=== PATIENT | female | born 1990 | race Two or more races ===

== ENCOUNTER 2017-12-22 17:58 | Inpatient (IN) | payer BC, MEDICAID ==
[2017-12-21 23:05] VITALS: BP 138/84
[~2017-12-22] VITALS: Ht 175.3 cm; Wt 52.2 kg
[2017-12-22] MEDS ORDERED: INSULIN (18:01)
[2017-12-22] MEDS ORDERED: SODIUM CHLORIDE 0.9% 1,000 ML IV ONE ×2 (18:49→20:03)
[2017-12-22 19:23] LABS: HEMATOCRIT. 44.7 % (36.0-48.0); HEMOGLOBIN. 14.1 g/dL (12.0-16.0); MEAN CORPUSCULAR HEMOGLOBIN 30.7 pg (28.0-32.0); MEAN CORPUSCULAR VOLUME 97.4 fL (81.0-99.0); MEAN PLATELET VOLUME 9.9 fl (7.4-10.4); PLATELET 368 x1000/uL (130-400); RED BLOOD CELL COUNT 4.59 mill/uL (4.2-5.4); RED CELL DISTRIBUTION WIDTH 13.1 % (11.6-14.6)
[2017-12-22 19:26] LABS: CHLORIDE 108 mEq/L (98-107)
[2017-12-22 19:30] LABS: AMYLASE 116 IU/L (25-115)
[2017-12-22 19:33] LABS: BETA HYDROXYBUTYRATE 8.7 mMol/L (0.0-0.3)
[2017-12-22 19:48] LABS: CLARITY URINE CLEAR (CLEAR); COLOR URINE YELLOW (YELLOW); KETONES URINE 4+ (NEGATIVE); LEUKOCYTE ESTERASE URINE NEGATIVE (NEGATIVE); NITRITE URINE NEGATIVE (NEGATIVE); OCCULT BLOOD URINE TRACE (NEGATIVE); PROTEIN URINE 1+ (NEGATIVE); SPECIFIC GRAVITY URINE 1.018 (1.005-1.030); UROBILINOGEN URINE 0.2 E.U./dL (0.2-1.0)
[2017-12-22 19:51] LABS: HCG SCREEN NEGATIVE
[2017-12-22 19:53] LABS: PLATELET ESTIMATE NORMAL
[2017-12-22 20:03] LABS: BG BASE EXCESS -29.6 mmol/L (-2.0-2.0); BG FRACTION INSPIRED OXYGEN 21; BG HCO3 ACT 2.5 mmol/L (22.0-26.0); BG PCO2 13.9 mmHg (35.0-45.0); BG PO2 139.9 mmHg (75.0-100.0); BG SAMPLE SITE RIGHT RADIAL; BG VENT MODE ROOM AIR
[2017-12-22] MEDS ORDERED: INSULIN REGULAR (DRIP) 100 UNITS in SODIUM CHLORIDE 0.9% 99 ML IV ONE (20:03)
[2017-12-22] MEDS ORDERED: SODIUM CHLORIDE 0.9% 1,000 ML IV STA (20:03)
[2017-12-22] MEDS ORDERED: PIPERACILLIN/TAZ 3.375G PREMIX 50 ML IV ONE (21:00)
[2017-12-22] MEDS ORDERED: SODIUM BICARBONATE 8.4% 1 MEQ/ML 50ML SYR IV ONE (21:00)
[2017-12-22 23:05] VITALS: BP 133/84
[2017-12-22] MEDS ORDERED: PIPERACILLIN/TAZ 3.375G PREMIX 50 ML IV SCH (23:45)
[2017-12-22] MEDS ORDERED: CLONIDINE 0.1MG TABLET PO PRN (23:45)
[2017-12-22] MEDS ORDERED: LORAZEPAM 2MG/ML CPJ IV PRN (23:45)
[2017-12-22] MEDS ORDERED: ONDANSETRON HCL 4MG/2ML VIAL IV PRN (23:45)
[2017-12-22] MEDS ORDERED: INSULIN REGULAR (DRIP) 100 UNITS in SODIUM CHLORIDE 0.9% 100 ML IV SCH (23:45)
[2017-12-22] MEDS ORDERED: IPRATROPIUM/ALBUTEROL 0.5-3(2.5)MG/3ML NEB INH PRN (23:45)
[2017-12-22 23:46] LABS: CHLORIDE 115 mEq/L (98-107)
[2017-12-22 23:52] LABS: PHOSPHORUS 3.5 mg/dL (2.5-4.9)
[2017-12-23] VITALS (24 sets, daily range): BP systolic 106–151; BP diastolic 66–90
[2017-12-23] MEDS ORDERED: INSULIN REGULAR (DRIP) 100 UNITS in SODIUM CHLORIDE 0.9% 100 ML IV SCH ×2 (00:35→19:56)
[2017-12-23] MEDS ORDERED: DEXTROSE 50% WATER 50ML SYRINGE IV PRN ×5 (00:45→20:00)
[2017-12-23] MEDS ORDERED: SODIUM CHL 0.9% + KCL 20MEQ/L 1,000 ML IV PRN (01:00)
[2017-12-23] MEDS ORDERED: DEXT 5%/0.9% NACL KCL 20MEQ/L 1,000 ML IV PRN ×2 (01:00→15:15)
[2017-12-23] MEDS: SODIUM CHLORIDE 0.9% 1,000 ML IV SCH ×2 (01:17→07:10)
[2017-12-23] MEDS: BLOOD SUGAR DIAGNOSTIC STRIP TEST SCH ×20 (01:22→23:00)
[2017-12-23] MEDS: DEXT 5%/0.9% NACL 1,000 ML IV PRN ×2 (02:00→07:14)
[2017-12-23 04:23] LABS: HEMATOCRIT. 42.6 % (36.0-48.0); HEMOGLOBIN. 13.8 g/dL (12.0-16.0); MEAN CORPUSCULAR HEMOGLOBIN 30.3 pg (28.0-32.0); MEAN CORPUSCULAR VOLUME 93.4 fL (81.0-99.0); MEAN PLATELET VOLUME 9.2 fl (7.4-10.4); PLATELET 291 x1000/uL (130-400); RED BLOOD CELL COUNT 4.56 mill/uL (4.2-5.4); RED CELL DISTRIBUTION WIDTH 12.7 % (11.6-14.6)
[2017-12-23 04:30] LABS: CHLORIDE 119 mEq/L (98-107)
[2017-12-23 04:37] LABS: PHOSPHORUS 1.9 mg/dL (2.5-4.9)
[2017-12-23 04:38] LABS: HDL CHOLESTEROL 73 mg/dL (40-59); LDL CHOLESTEROL 73 mg/dL (5-100)
[2017-12-23 04:39] LABS: CREATINE KINASE 84 IU/L (26-192)
[2017-12-23 04:40] LABS: CREATINE KINASE MB FRACTION 2.2 ng/mL (0.5-3.6)
[2017-12-23] MEDS ORDERED: CYCL10TA7 PO (05:00)
[2017-12-23] MEDS ORDERED: PANT40SU PO (05:02)
[2017-12-23] MEDS ORDERED: ACET-2708 PO (05:02)
[2017-12-23 06:45] LABS: PLATELET ESTIMATE NORMAL
[2017-12-23] MEDS: PIPERACILLIN/TAZ 3.375G PREMIX 50 ML IV SCH ×3 (07:13→21:01)
[2017-12-23 08:55] LABS: CHLORIDE 120 mEq/L (98-107)
[2017-12-23] MEDS: ENOXAPARIN 40MG/0.4ML SYR SUBCUT SCH (09:30)
[2017-12-23] MEDS ORDERED: VANCOMYCIN 1 G PREMIX 200 ML IV NR (12:00)
[2017-12-23 12:36] LABS: CHLORIDE 120 mEq/L (98-107)
[2017-12-23 12:47] LABS: T4 FREE 1.29 ng/dL (0.76-1.46)
[2017-12-23] MEDS ORDERED: POTASSIUM CHLORIDE 20MEQ/PACKET PO NR (17:00)
[2017-12-23 17:42] LABS: CREATINE KINASE 61 IU/L (26-192)
[2017-12-23] MEDS ORDERED: BLOOD SUGAR DIAGNOSTIC STRIP TEST SCH (17:50)
[2017-12-23] MEDS ORDERED: INSULIN LISPRO 100 UNITS/ML SUBCUT SCH (18:20)
[2017-12-23] MEDS: METOCLOPRAMIDE HCL 10MG/2ML VIAL IV SCH (18:28)
[2017-12-23] MEDS: VANCOMYCIN 750 MG PREMIX 150 ML IV SCH (20:24)
[2017-12-23] MEDS: DEXT 5%/0.45% NACL KCL 30MEQ/L 1,000 ML IV SCH (21:01)
[2017-12-23] MEDS: INSULIN REGULAR (DRIP) 100 UNITS in SODIUM CHLORIDE 0.9% 99 ML IV SCH (21:05)
[2017-12-24] VITALS (23 sets, daily range): BP systolic 94–154; BP diastolic 55–98
[2017-12-24] MEDS: METOCLOPRAMIDE HCL 10MG/2ML VIAL IV SCH ×5 (00:06→18:59)
[2017-12-24] MEDS: BLOOD SUGAR DIAGNOSTIC STRIP TEST SCH ×21 (00:07→22:06)
[2017-12-24] MEDS: VANCOMYCIN 750 MG PREMIX 150 ML IV SCH (04:08)
[2017-12-24] MEDS: DEXT 5%/0.45% NACL KCL 30MEQ/L 1,000 ML IV SCH ×3 (04:08→21:39)
[2017-12-24] MEDS: PIPERACILLIN/TAZ 3.375G PREMIX 50 ML IV SCH ×3 (06:03→22:06)
[2017-12-24 06:06] LABS: HEMATOCRIT. 38.6 % (36.0-48.0); MEAN CORPUSCULAR HEMOGLOBIN 30.6 pg (28.0-32.0); MEAN CORPUSCULAR VOLUME 91.2 fL (81.0-99.0); MEAN PLATELET VOLUME 8.8 fl (7.4-10.4); PLATELET 251 x1000/uL (130-400); RED BLOOD CELL COUNT 4.24 mill/uL (4.2-5.4)
[2017-12-24 06:27] LABS: CHLORIDE 116 mEq/L (98-107)
[2017-12-24 06:34] LABS: PHOSPHORUS 1.3 mg/dL (2.5-4.9)
[2017-12-24] MEDS ORDERED: SODIUM PHOS,M-BASIC-D-BASIC 20 MM in DEXT 5% WATER 243.3333 ML IV SCH (08:00)
[2017-12-24] MEDS: ENOXAPARIN 40MG/0.4ML SYR SUBCUT SCH (09:12)
[2017-12-24] MEDS ORDERED: MAGNESIUM 1 G PREMIX 100 ML IV NR (10:00)
[2017-12-24 10:02] LABS: PLATELET ESTIMATE NORMAL
[2017-12-24] MEDS: VANCOMYCIN 1,750 MG in DEXT 5% WATER 500 ML IV SCH ×2 (14:09→21:39)
[2017-12-24] MEDS: INSULIN REGULAR (DRIP) 100 UNITS in SODIUM CHLORIDE 0.9% 99 ML IV SCH (14:18)
[2017-12-24 17:28] LABS: CHLORIDE 114 mEq/L (98-107)
[2017-12-24] MEDS ORDERED: PROCHLORPERAZINE MALEATE 25MG SUPP PR PRN (20:00)
[2017-12-24] MEDS ORDERED: KCL 20MEQ/100ML PREMIX 100 ML IV SCH (22:00)
[2017-12-24] MEDS: PROCHLORPERAZINE 10MG/2ML VIAL IM PRN (22:06)
[2017-12-25] VITALS (23 sets, daily range): BP systolic 128–155; BP diastolic 71–108
[2017-12-25] MEDS: BLOOD SUGAR DIAGNOSTIC STRIP TEST SCH ×11 (00:19→21:21)
[2017-12-25] MEDS: METOCLOPRAMIDE HCL 10MG/2ML VIAL IV SCH ×5 (00:20→23:25)
[2017-12-25] MEDS: VANCOMYCIN 1,750 MG in DEXT 5% WATER 500 ML IV SCH ×2 (00:20→06:47)
[2017-12-25 06:11] LABS: BASOPHILS % 0.6 % (0.0-2.0); EOSINOPHILS % 0.2 % (0.0-5.0); HEMATOCRIT. 35.3 % (36.0-48.0); LYMPHOCYTES % 17.3 % (20.0-50.0); MEAN CORPUSCULAR HEMOGLOBIN 30.8 pg (28.0-32.0); MEAN CORPUSCULAR VOLUME 90.3 fL (81.0-99.0); MEAN PLATELET VOLUME 8.8 fl (7.4-10.4); MONOCYTES % 13.7 % (2.0-8.0); NEUTROPHILS % 68.2 % (40.0-76.0); PLATELET 242 x1000/uL (130-400); RED BLOOD CELL COUNT 3.91 mill/uL (4.2-5.4); RED CELL DISTRIBUTION WIDTH 12.8 % (11.6-14.6)
[2017-12-25 06:19] LABS: CHLORIDE 109 mEq/L (98-107)
[2017-12-25] MEDS: PIPERACILLIN/TAZ 3.375G PREMIX 50 ML IV SCH ×3 (06:23→21:21)
[2017-12-25] MEDS: DEXT 5%/0.45% NACL KCL 30MEQ/L 1,000 ML IV SCH ×2 (06:23→14:45)
[2017-12-25 06:26] LABS: PHOSPHORUS 1.6 mg/dL (2.5-4.9)
[2017-12-25 06:32] LABS: BETA HYDROXYBUTYRATE 0.1 mMol/L (0.0-0.3)
[2017-12-25] MEDS ORDERED: KCL 20MEQ/100ML PREMIX 100 ML IV NR (07:00)
[2017-12-25] MEDS: POTASSIUM PHOS,M-BASIC-D-BASIC 20 MMOL in DEXT 5% WATER 243.3333 ML IV NR ×2 (08:50→10:23)
[2017-12-25 09:27] LABS: CHLORIDE 105 mEq/L (98-107)
[2017-12-25] MEDS ORDERED: LIDOCAINE HCL 1% 20ML VIAL (Pyxis) INJ ONE (10:15)
[2017-12-25] MEDS: INSULIN REGULAR (DRIP) 100 UNITS in SODIUM CHLORIDE 0.9% 99 ML IV SCH (10:19)
[2017-12-25] MEDS: ENOXAPARIN 40MG/0.4ML SYR SUBCUT SCH (10:24)
[2017-12-25] MEDS: PROCHLORPERAZINE 10MG/2ML VIAL IM PRN (12:37)
[2017-12-25] MEDS: KCL 10MEQ/50ML PREMIX 50 ML IV SCH ×3 (14:44→16:58)
[2017-12-25] MEDS ORDERED: DEXTROSE 50% WATER 50ML SYRINGE IV PRN (16:00)
[2017-12-25] MEDS ORDERED: SODIUM CHLORIDE 0.45% IV SCH (17:00)
[2017-12-25] MEDS ORDERED: POTASSIUM ACETATE IV SCH (17:00)
[2017-12-25] MEDS ORDERED: INSULIN GLARGINE UD 100 UNITS/ML SYR SUBCUT NR (17:00)
[2017-12-25] MEDS: INSULIN LISPRO 100 UNITS/ML SUBCUT SCH ×4 (17:48→21:52)
[2017-12-25] MEDS: POTASSIUM ACETATE IV SCH (18:51)
[2017-12-25] MEDS: SODIUM CHLORIDE 0.45% IV SCH (18:51)
[2017-12-26] VITALS: BP 121/73
[2017-12-26] MEDS: PROCHLORPERAZINE 10MG/2ML VIAL IM PRN (04:04)
[2017-12-26 04:09] VITALS: BP 139/89
[2017-12-26 05:20] LABS: HEMATOCRIT. 33.4 % (36.0-48.0); HEMOGLOBIN. 11.5 g/dL (12.0-16.0); MEAN CORPUSCULAR VOLUME 90.3 fL (81.0-99.0); PLATELET 213 x1000/uL (130-400); RED CELL DISTRIBUTION WIDTH 12.5 % (11.6-14.6)
[2017-12-26 05:36] LABS: PHOSPHORUS 3.3 mg/dL (2.5-4.9)
[2017-12-26] MEDS: PIPERACILLIN/TAZ 3.375G PREMIX 50 ML IV SCH (06:04)
[2017-12-26] MEDS: METOCLOPRAMIDE HCL 10MG/2ML VIAL IV SCH (06:04)
[2017-12-26 07:51] VITALS: BP 111/85
[2017-12-26] MEDS ORDERED: BLOOD SUGAR DIAGNOSTIC STRIP TEST SCH (08:00)
[2017-12-26] MEDS ORDERED: INSULIN LISPRO 100 UNITS/ML SUBCUT SCH ×2 (08:00→08:03)
[2017-12-26] MEDS ORDERED: VANCOMYCIN 1250MG in DEXTROSE 5% WATER 250ML IV SCH (09:00)
[2017-12-26 09:05] VITALS: BP 135/86
[2017-12-26] MEDS: ENOXAPARIN 40MG/0.4ML SYR SUBCUT SCH (09:15)
[2017-12-26] MEDS: POTASSIUM ACETATE IV SCH (09:16)
[2017-12-26] MEDS: SODIUM CHLORIDE 0.45% IV SCH (09:16)
[2017-12-26 09:48] LABS: PLATELET ESTIMATE NORMAL
[2017-12-26] MEDS ORDERED: INSULIN GLARGINE UD 100 UNITS/ML SYR SUBCUT SCH ×3 (10:00→22:00)
[2017-12-26 10:54] VITALS: BP 151/91
[2017-12-27] MEDS ORDERED: INSULIN LISPRO 100 UNITS/ML SUBCUT SCH (07:50)
[2017-12-27] MEDS ORDERED: BLOOD SUGAR DIAGNOSTIC STRIP TEST SCH (07:50)
== END 2017-12-26 12:15 | disposition left against medical advice (07) | DRG 871 ==
LOC: ER 18:52 → EDBEDREQTM 21:42 → EDBEDREQ 21:42 → ENRESERV 21:55 → CVICU 23:02
PROVIDERS: ADMIT Internal Medicine; ATTEND Internal Medicine
PROC: 02HV33Z Insertion of Infusion Device into Superior Vena Cava, Percutaneous Approach (ICD-10-PCS; principal; 2017-12-25)
PROC: B548ZZA Ultrasonography of Superior Vena Cava, Guidance (ICD-10-PCS; 2017-12-25)
DX: A41.9 Sepsis, unspecified organism (principal); E10.10 Type 1 diabetes mellitus with ketoacidosis without coma; K85.90 Acute pancreatitis without necrosis or infection, unspecified; E87.0 Hyperosmolality and hypernatremia; K56.7 Ileus, unspecified; E10.43 Type 1 diabetes mellitus with diabetic autonomic (poly)neuropathy; E78.1 Pure hyperglyceridemia; E87.6 Hypokalemia; E87.8 Other disorders of electrolyte and fluid balance, not elsewhere classified; K31.84 Gastroparesis; Z96.41 Presence of insulin pump (external) (internal); Z53.21 Procedure and treatment not carried out due to patient leaving prior to being seen by health care provider; Z79.4 Long term (current) use of insulin; Z83.3 Family history of diabetes mellitus; Z88.8 Allergy status to other drugs, medicaments and biological substances; Z91.19 Patient's noncompliance with other medical treatment and regimen
CPT/HCPCS: 36415; 36569; 36600; 71045; 74176; 76937; 80048; 80053; 80061; 80202; 81003; 82010; 82150; 82550; 82553; 82805; 82962; 83036; 83605; 83690; 83735; 84100; 84132; 84145; 84439; 84443; 84481; 84484; 84703; 85025; 87040; 87086; 93005; 93970; 96374; 96375; 99291; C1725; J0780; J1650; J1815; J2543; J2765; J3370; J3475; J3480; J3490; J7030; J7040; J7042; J7050; J7060